=== PATIENT | male | born 1980 | race Hispanic/Latino ===

== ENCOUNTER 2019-12-23 18:13 | Emergency (ER) | payer SELFPAY ==
[2019-12-23] MEDS ORDERED: Sodium Chloride 0.9% 1,000 ML ONE (18:47)
[2019-12-23] MEDS ORDERED: Lorazepam 2 MG/ML VIAL ONE ×2 (18:47→20:06)
[2019-12-23 19:01] LABS: INR-International Normal Ratio 1.2; Prothrombin Time 14.7 SEC (12.0-14.7)
[2019-12-23 19:06] LABS: #Lymphocytes 0.5 thou/uL (1.20-3.40); #Monocytes 0.3 thou/uL (0.11-0.59); #Neutrophils 2.3 thou/uL (1.40-6.50); %Basophils 1.4 % (0.0-1.0); %Eosinophils 0.4 % (0.0-10.0); %Lymphocytes 15.3 % (21.0-51.0); %Monocytes 8.8 % (0.0-10.0); %Neutrophils 74.1 % (42.0-75.0); Hemoglobin 12.9 g/dL (14.0-18.0); Mean Corpuscular HGB CONC 32.2 g/dL (32.0-36.0); Mean Corpuscular Hemoglobin 30.1 pg (27.0-31.0); Mean Corpuscular Volume 93.6 fL (78.0-98.0); Mean Platelet Volume 8.6 fL (7.4-10.4); Platelet Count 64 thou/uL (130-400); Platelet Morphology Comment Appears Decreased; RBC Distribution Width 14.8 % (11.5-14.5); Red Blood Cell (RBC) Count 4.27 mill/uL (4.70-6.10); White Blood Cell (WBC) Count 3.1 thou/uL (4.8-10.8)
[2019-12-23 19:11] LABS: Acetaminophen Less than 6.0 mcg/mL (10.0-30.0); Alcohol Less than 10 mg/dL (Less than 10); Salicylate Less than 8.0 mg/dL (15.0-30.0)
[2019-12-23 19:13] LABS: ALT (SGPT) 270 U/L (8-55); AST (SGOT) 338 U/L (5-34); Albumin 3.9 g/dL (3.5-5.0); Alkaline Phosphatase 163 U/L (40-110); Anion Gap 24 mmol/L (10-20); BUN (Urea Nitrogen) 4 mg/dL (8.9-20.6); Bilirubin, Total 2.1 mg/dL (0.2-1.2); Calc. Creatinine Clearance 0 mL/min (70-130); Calcium 7.9 mg/dL (7.8-10.44); Carbon Dioxide 25 mmol/L (22-29); Chloride 93 mmol/L (98-107); Estimated GFR-MDRD Greater than 90; Globulin 2.8 g/dL (2.4-3.5); Glucose 124 mg/dL (70-105); Protein, Total 6.7 g/dL (6.0-8.3); Sodium 139 mmol/L (136-145)
[2019-12-23 19:22] LABS: Potassium 2.9 mmol/L (3.5-5.1)
--- NOTE | 2019-12-23 19:31 | CT ---
NONCONTRAST CT CERVICAL SPINE: 12/23/19 HISTORY: Injury after falling and hitting head. Seizure. TECHNIQUE: Contiguous axial CT images are obtained through the cervical spine from the skull base to the T3-4 le jimena. Sagittal and coronal reformatted images are provided. FINDINGS: Vertebral body heights are within normal limits. No fracture or traumatic subluxation is seen involvi ng the cervical spine. Interspinous distances appear to be within normal limits. No prevertebral soft tissue swelling is identified. Limited visualized thyroid gland demonstrates grossly normal nonenhanced CT appearance. The visualized lung apices are clear. Minimal vascular calcifications are seen in the visualized aortic arch. IMPRESSION: No fracture or traumatic subluxation involving the cervical spine. POS: BEATA
--- NOTE | 2019-12-23 19:39 | CT ---
NONCONTRAST CT HEAD: 12/23/19 HISTORY: Seizure. Patient fell and hit head. Injury after fall. COMPARISON: None. FINDINGS: There is no evidence of a hemorrhage, acute infarction, mass effect, or midline shift. The ventricula r system is normal in size, shape and position. Mild cerebral volume loss is present, more than typic ally expected for the patient's age. The visualized paranasal sinuses and mastoid air cells are clear . A right anterolateral frontal scalp hematoma is present. No underlying calvarial fracture is visualiz ed. A subtle linear calcific appearing density is seen in the region of the scalp soft tissue hematom a measuring 9 mm x 1 mm. The exact etiology for this structure is uncertain. The adjacent calvarium d oes appear intact. This does not appear to represent a fracture. A subtle radiopaque foreign body can not be entirely excluded. IMPRESSION: 1. No acute intracranial abnormality demonstrated. 2. Mild cerebral volume loss which is more than expected for patient's age. 3. Right anterolateral frontal scalp hematoma with linear radiopaque density seen in the region of the scalp hematoma adjacent to the anterior right frontal bone. As noted above, the adjacent di rium does appear intact. The exact etiology for this structure is uncertain. This could potentially r epresent a subtle linear radiopaque foreign body. POS: BEATA
[2019-12-23] MEDS ORDERED: Potassium Chloride 20 MEQ TAB ONE (20:12)
== END 2019-12-23 21:00 | disposition short-term general hospital (02) ==
LOC: MADERS 18:13
DX: R56.9 Unspecified convulsions (principal); S00.83XA Contusion of other part of head, initial encounter; F10.239 Alcohol dependence with withdrawal, unspecified; Y90.0 Blood alcohol level of less than 20 mg/100 ml; E87.6 Hypokalemia; W18.30XA Fall on same level, unspecified, initial encounter
CPT/HCPCS: 36415; 70450; 72125; 80053; 80307; 85025; 85610; 93005; 96361; 96374; 96376; J2060; J7050